=== PATIENT | male | born 1995 | race African-American/Black ===

== ENCOUNTER 2021-07-28 18:30 | Emergency (ER) | payer OTHER ==
[~2021-07-28] VITALS: Ht 188 cm; Wt 113.4 kg
--- NOTE | 2021-07-28 18:43 | NUR ---
Pt seen by provider. Assessed wound healing. I removed 3 sutures from (R) wrist, per provider request, without any issue. Site is clean, dry, and intact without redness, pain, or swelling to site.
--- NOTE | 2021-07-28 18:49 | NUR ---
Patient discharged to home in stable condition. Written and verbal after care instructions given. Patient verbalizes understanding of instructions. Stressed follow up or return to ER for worsening s/s.
[2021-07-28 18:50] VITALS: BP 123/74
== END 2021-07-28 18:50 | disposition home or self-care (01) ==
LOC: ER 18:34
DX: S51.822D Laceration with foreign body of left forearm, subsequent encounter (principal); W25.XXXD Contact with sharp glass, subsequent encounter
CPT/HCPCS: A4663